=== PATIENT | female | born 1970 | race Caucasian/White ===

== ENCOUNTER 2018-12-09 08:51 | Day surgery (SDC) | payer MEDICAID, OTHER ==
[~2018-12-09] VITALS: Ht 167.6 cm; Wt 98.2 kg
[2018-12-09 10:06] VITALS: Ht 167.6 cm; Wt 98.2 kg
[2018-12-09 10:20] VITALS: BP 137/75; PULSE 104; RESP 18
[2018-12-09] MEDS ORDERED: MIDAZOLAM 1 MG/ML 2 ML INJ ONE ×2 (10:54→10:55)
[2018-12-09] MEDS ORDERED: FENTAnyl 50 MCG/ML VIAL ONE (10:55)
[2018-12-09 11:12] VITALS: BP 114/77; PULSE 69; RESP 21
== END 2018-12-09 11:37 | disposition home or self-care (01) ==
LOC: GIL 08:51
PROVIDERS: ATTEND Internal Medicine Gastroenterology
DX: Z12.11 Encounter for screening for malignant neoplasm of colon (principal); D12.3 Benign neoplasm of transverse colon; K64.4 Residual hemorrhoidal skin tags
CPT/HCPCS: 88305; J2250; J3010